=== PATIENT | female | born 2000 | race Caucasian/White ===

== ENCOUNTER 2020-07-24 14:40 | Outpatient (CLI) | payer OTHER ==
--- NOTE | 2020-07-24 16:01 | MRI ---
MRI OF RIGHT ANKLE PERFORMED WITHOUT CONTRAST ENHANCEMENT: 07/24/20 HISTORY: Ankle pain. Concern for osteochondral lesion of the talus. The area of patient's pain was marked whic h is along the anterior aspect of the ankle dorsal to the talonavicular joint. The Achilles tendon is normal in appearance. The anterior extensor tendon group appears unremarkable. Posterior tibialis tendon, flexor digitorum longus and flexor hallucis longus tendons all appear int act. Peroneus longus and brevis tendons are normal in appearance. Lisfranc ligament is intact. Spring ligament complex appears unremarkable. sinus tarsi region appears unremarkable. There is no evidence of any osteochondral lesion of the talar dome. Joint space is well preserved. Sy ndesmotic ligaments are intact. Deltoid ligament complex is unremarkable. Anterior talofibular ligame nt and calcaneofibular ligaments also appear intact. At the level of the talonavicular joint, there is some capsular thickening along the dorsal side and a small fluid collection along the dorsal side of the talonavicular joint. This is all of questionabl e significance. No marrow edema change or any joint space narrowing seen associated with these findin gs. IMPRESSION: Essentially unremarkable MRI of the ankle. The findings as described above. POS: [facility]
== END 2020-07-24 14:41 | disposition home or self-care (01) ==
LOC: TBSIIMAG 14:40
PROVIDERS: ATTEND Orthopaedic Surgery
DX: M25.571 Pain in right ankle and joints of right foot (principal)